=== PATIENT | male | born 1950 | race African-American/Black ===

== ENCOUNTER 2016-07-16 03:03 | Emergency (ER) | payer OTHER ==
[~2016-07-16] VITALS: Ht 170.2 cm; Wt 82.1 kg
[2016-07-16 03:33] LABS: BASO # 0.1 x10^3/uL (0.0-0.2); BASO % 0 % (0-3); EOS % 0 % (0-3); HEMATOCRIT 33.4 % (39.0-53.0); HEMOGLOBIN 11.6 g/dL (13.0-17.5); LYMPH # 1.3 x10^3/uL (1.0-4.8); LYMPH % 9 % (24-48); MEAN CORPUSCULAR HEMOGLOBIN 30 pg (25-35); MEAN CORPUSCULAR HGB CONC 35 g/dL (31-37); MEAN CORPUSCULAR VOLUME 85 fL (79-100); MONO % 10 % (0-9); NEUT % 80 % (31-73); PLATELET COUNT 280 x10^3/uL (140-400); RED BLOOD COUNT 3.92 x10^6/uL (4.30-5.70); RED CELL DISTRIBUTION WIDTH 13.3 % (11.5-14.5); WHITE BLOOD COUNT 13.8 x10^3/uL (4.0-11.0)
[2016-07-16 03:47] LABS: CALCIUM 9.4 mg/dL (8.5-10.1); GFR 89.9; POTASSIUM 4.7 mmol/L (3.5-5.1)
[2016-07-16 03:52] LABS: ALBUMIN 3.2 g/dL (3.4-5.0); ALBUMIN/GLOBULIN RATIO 0.7 (1.0-1.7); TOTAL BILIRUBIN 0.5 mg/dL (0.2-1.0); TOTAL PROTEIN 7.6 g/dL (6.4-8.2)
--- NOTE | 2016-07-16 05:03 | PHYS DOC ---
Past Medical History Past Medical History: A-Fib, Diabetes-Type II, High Cholesterol, Hypertension Additional Past Medical Histor: PANCREATIC CANCER AND BACK PAIN Past Surgical History: No Surgical History Alcohol Use: Occasionally Drug Use: Marijuana Adult General Chief Complaint Chief Complaint: DIZZY/LIGHT HEADED HPI HPI Patient is a 66 year old gentleman with a history significant for hypertension , diabetes, atrial fibrillation that's being treated with diltiazem, recently diagnosed with pancreatic cancer, presents here today secondary to waking up to go the bathroom and felt palpitations in his chest that he thought he was back in atrial fibrillation. Patient has any other symptomatology. Patient has any fevers shakes chills nausea vomiting diarrhea chest pain or shortness of breath. Patient reports he is constipated. Patient denies any dysuria frequency or urgency. Patient has any cough cold or runny nose. Patient denies any surgeries in the past. Patient not smoke drink or do any drugs. Patient's physical exam the ED was unremarkable. Patient's heart was regular rate and rhythm. Lungs were clear. Abdomen was soft nontender nondistended no rebound or guarding. Patient's hospital course was significant for normal labs. Patient's EKG was sinus rhythm with nonspecific ST-T wave abnormalities. There was no evidence of atrial fibrillation. No evidence of ST elevation [place]. A/P #1 palpitations. Patient's clinically hemodynamically stable. Patient was monitored in the ER for approximately 1 hour and his heart rate has been stable. Patient's heart rate is been running between 70 and 80 throughout the majority of his stay here and has been sinus rhythm without atrial fibrillation. Review of Systems Review of Systems Constitutional: Denies fever or chills [] Eyes: Denies change in visual acuity, redness, or eye pain [] HENT: Denies nasal congestion or sore throat [] All other review systems are negative except as documented in history of present illness portion. Allergies Allergies Allergies Coded Allergies Type Severity Reaction Last Updated Verified No Known Drug Allergies 01/04/16 No Physical Exam Physical Exam Constitutional: Well developed, well nourished, no acute distress, non-toxic appearance. [] HENT: Normocephalic, atraumatic, bilateral external ears normal, oropharynx moist, no oral exudates, nose normal. [] Eyes: PERRLA, EOMI, conjunctiva normal, no discharge. [] Neck: Normal range of motion, no tenderness, supple, no stridor. [] Cardiovascular:Heart rate regular rhythm, Lungs & Thorax: Bilateral breath sounds clear to auscultation [] Abdomen: Bowel sounds normal, soft, no tenderness, no masses, no pulsatile masses. [] Skin: Warm, dry, no erythema, no rash. [] Back: No tenderness, no CVA tenderness. [] Extremities: No tenderness, no cyanosis, no clubbing, ROM intact, no edema. [] Neurologic: Alert and oriented X 3, normal motor function, normal sensory function, no focal deficits noted. [] Psychologic: Affect normal, judgement normal, mood normal. [] Current Patient Data Vital Signs Vital Signs Date Time Temp Pulse Resp B/P (MAP) Pulse Ox O2 Delivery O2 Flow Rate FiO2 07/16/16 03:11 98.0 88 18 152/75 (100) 96 Room Air 98.0 Lab Values Laboratory Tests Test 07/16/16 03:25 White Blood Count 13.8 x10^3/uL (4.0-11.0) H Red Blood Count 3.92 x10^6/uL (4.30-5.70) L Hemoglobin 11.6 g/dL (13.0-17.5) L Hematocrit 33.4 % (39.0-53.0) L Mean Corpuscular Volume 85 fL (79-100) Mean Corpuscular Hemoglobin 30 pg (25-35) Mean Corpuscular Hemoglobin Concent 35 g/dL (31-37) Red Cell Distribution Width 13.3 % (11.5-14.5) Platelet Count 280 x10^3/uL (140-400) Neutrophils (%) (Auto) 80 % (31-73) H Lymphocytes (%) (Auto) 9 % (24-48) L Monocytes (%) (Auto) 10 % (0-9) H Eosinophils (%) (Auto) 0 % (0-3) Basophils (%) (Auto) 0 % (0-3) Neutrophils # (Auto) 11.0 x10^3uL (1.8-7.7) H Lymphocytes # (Auto) 1.3 x10^3/uL (1.0-4.8) Monocytes # (Auto) 1.4 x10^3/uL (0.0-1.1) H Eosinophils # (Auto) 0.0 x10^3/uL (0.0-0.7) Basophils # (Auto) 0.1 x10^3/uL (0.0-0.2) Sodium Level 133 mmol/L (136-145) L Potassium Level 4.7 mmol/L (3.5-5.1) Chloride Level 97 mmol/L (98-107) L Carbon Dioxide Level 27 mmol/L (21-32) Anion Gap 9 (6-14) Blood Urea Nitrogen 13 mg/dL (8-26) Creatinine 1.0 mg/dL (0.7-1.3) Estimated GFR (Cockcroft-Gault) 89.9 BUN/Creatinine Ratio 13 (6-20) Glucose Level 153 mg/dL (70-99) H Calcium Level 9.4 mg/dL (8.5-10.1) Total Bilirubin 0.5 mg/dL (0.2-1.0) Aspartate Amino Transferase (AST) 35 U/L (15-37) Alanine Aminotransferase (ALT) 54 U/L (16-63) Alkaline Phosphatase 152 U/L (46-116) H Troponin I Quantitative < 0.017 ng/mL (0.000-0.055) Total Protein 7.6 g/dL (6.4-8.2) Albumin 3.2 g/dL (3.4-5.0) L Albumin/Globulin Ratio 0.7 (1.0-1.7) L Laboratory Tests 07/16/16 03:25 Laboratory Tests 07/16/16 03:25 EKG EKG [] Radiology/Procedures Radiology/Procedures [] Course & Med Decision Making Course & Med Decision Making Pertinent Labs and Imaging studies reviewed. (See chart for details) [] Dragon Disclaimer Dragon Disclaimer This electronic medical record was generated, in whole or in part, using a voice recognition dictation system. Departure Departure Impression: Primary Impression: Palpitations Disposition: 01 HOME, SELF-CARE Condition: IMPROVED Referrals: JANET EVANS (PCP) Patient Instructions: Palpitations Additional Instructions: Please call your doctor in the morning to discuss with him the symptoms that he had at to see if they want to change her at any new medications for you. PATRIZIA GUERRIER MD July 16, 2016 05:03
[2016-07-16 05:20] VITALS: BP 132/74
--- NOTE | 2016-07-16 07:51 | EKG ---
[facility] [address] [place] [address] Test Date: 2016-07-16 Test Time: 03:06:39 Pat Name: NARCISO SHANKAR Department: Room: Gender: M Hospice Case Manager: : [id number] Requested By: PATRIZIA GUERRIER Order Number: [id number] Reading MD: Sandeep Gaytan Measurements Intervals [place] Rate: 78 P: 22 ME: 138 QRS: 34 QRSD: 64 T: 38 QT: 348 QTc: 400 Interpretive Statements SINUS RHYTHM Electronically Signed On 07-21-2016 9:15:12 CDT by Sandeep Gaytan
== END 2016-07-16 05:25 | disposition home or self-care (01) ==
LOC: ER 03:03
DX: R00.2 Palpitations (principal); K59.00 Constipation, unspecified; I10 Essential (primary) hypertension; E11.9 Type 2 diabetes mellitus without complications; I48.91 Unspecified atrial fibrillation; E78.00 Pure hypercholesterolemia, unspecified; F12.10 Cannabis abuse, uncomplicated
CPT/HCPCS: 36415; 80053; 84484; 85027; 93005; 99285-25